=== PATIENT | female | born 1930 | race Caucasian/White ===

== ENCOUNTER → 2016-12-22 | Outpatient (CLI) | payer MEDICARE | END | disposition home or self-care (01) | LOC: RAD.S 14:53 | DX: E04.1 Nontoxic single thyroid nodule (principal); E04.2 Nontoxic multinodular goiter ==

== ENCOUNTER → 2017-01-11 | Outpatient (CLI) | payer MEDICARE ==
--- NOTE | ~2017-01-11 | CST ---
Cardiac Perfusion Imaging Demographics Patient Name HUGO DALTON M Gender Female Patient Number [id number] Race Visit Number [id number] Ethnicity Corporate ID Room Number Accession Number [id number] Height 60 inches Date of 1930 Weight 137 pounds Age 86 year(s) BSA 1.59 m Referring Physician Brandy SAMUEL BMI 26.76 kg/m Interpreting Physician NANCYAnirudh Carty Date of study 01/11/2017 Luz Block MD Supervising MD/MLP Luz Block MD NM Technologist Mana Ceja Ordering Physician [facility] Snehal [facility] Stress Nevin Jon performing arts technicians Stress ECG Reading [facility] Nurse Terrence Lee Physician Luz Moreira The procedure was explained in detail to the patient. Risks, complications and alternative treatments were reviewed. Written consent was obtained. Medications Reviewed with Patient prior to Procedure. Procedure Procedure Type: Nuclear Stress Test:Cardiac Study SF Procedure Start time: 01/11/2017 07:45 Indications: Shortness of breath, History of CAD and Hyperlipidemia. Risk Factors The patient risk factors include:prior PCI;chronic lung disease and dyslipidemia. Conclusions Summary Perfusion Images: The overall quality of the study is good. Left ventricular cavity is noted to be normal on the stress and rest studies. There is no evidence of abnormal lung activity. The right ventricle is not visualized and cannot be assessed. Stress SPECT images demonstrate homogenous tracer distribution throughout the myocardium. Rest SPECT images demonstrate homogenous tracer distribution throughout the myocardium. Gated SPECT imaging reveals normal myocardial thickening and wall motion. The left ventricular ejection fraction was calculated to be 77%. Impression ECG portion of stress test is clinically negative for ischemia by diagnostic criteria. Myocardial perfusion imaging is normal. Overall left ventricular systolic function was normal without regional wall motion abnormalities. Compared to the prior study from 2008, the current study reveals no change. Stress Protocols Resting ECG Normal sinus rhythm. Resting HR:68 bpm Resting BP:174/84 mmHg Stress Protocol:Pharmacologic Predicted HR: 136 bpm Test duration: 06:00 min Reason for termination:Infusion complete ECG Findings No ECG changes suggestive of ischemia. Arrhythmias No rhythm abnormality. Symptoms No symptoms with Lexiscan infusion. Complications Procedure complication: None. Stress Interpretation Appropriate hemodynamic response to Lexiscan. No significant ST-T wave changes with Lexiscan. ECG portion is negative for ischemia by diagnostic criteria. Imaging Results Summed scores - Summed stress score: 1 - Summed rest score: 0 - Summed difference score: 1 Stress ejection Ejection fraction:76 % EDV :68 ml ESV :16 ml Stroke volume :52 ml LV mass :92 gr Imaging Protocols Rest Stress Isotope:Tc99m Myoview IV Isotope: Tc99m Myoview IV Isotope dose:10.5 mCi Isotope dose:31.6 mCi Date:01/11/2017 06:45 Date:01/11/2017 08:00 Technique: SPECT Technique: Gated Supine SPECT Supine Scan Time:45-60 minutes post Scan Time:15-30 minutes post injection injection Procedure Medications - Regadenoson (Lexiscan) 0.4 mg IV over 10-15 sec. I.V. 0.4 mg. Medications administered per verbal order and read back to physician prior to administration. Medical History Admission Data Admission date: 01/11/2017 Admission Time: 06:41 Hospital Status: Outpatient. Signatures
== END | disposition home or self-care (01) ==
LOC: CARD 06:41
DX: R06.02 Shortness of breath (principal); I25.10 Atherosclerotic heart disease of native coronary artery without angina pectoris

== ENCOUNTER 2017-02-01 07:05 | Day surgery (SDC) | payer MEDICARE, OTHER ==
[~2017-02-01] VITALS: Ht 149.9 cm; Wt 61.4 kg
--- NOTE | ~2017-02-01 | EEP ---
Loop Recorder Implant Report Demographics Patient Name HUGO Wasserman JANUARY Gender Female Patient Number [id number] Race Visit Number [id number] Ethnicity Corporate ID Room Number Accession Number [id number] Height 149.86 cm Date of 1930 Weight 62.14 kg Age 86 year(s) BSA 1.57 m Referring Physician Regino Jones MD BMI 27.67 kg/m Implanting Physician Luz Block MD Date of Study 02/01/2017 Assisting Physician Performing Physician Luz Block MD The procedure was explained in detail to the patient. Risks, complications and alternative treatments were reviewed. Written consent was obtained. Medications reviewed with patient prior to procedure. Conclusions Implantable Device Summary Summary Successful implantation of Loop recorder. Recommendations Keep Dressing dry. Follow up in 1 week. Complications No complications. Procedure Procedure Type Loop Recorder:Initial implantation of loop recorder Indications Syncope. Procedure Description The patient was brought to the cath laboratory in a fasting state. A baseline ECG was recorded. Surface ECG leads, intracardiac electrograms, blood pressure measurements, and pulse oximetry signals were monitored with bedside monitor. Conscious sedation was administered. The upper chest area was prepped with ChloraPrep. After a three minute dry time the patient was draped in a sterile fashion. 2 % Lidocaine with Epi was infused at the 2nd parasternal space. An incision was made at the 2nd parasternal space left chest. Loop recorder was placed via [employer] insertion tool. Hemostasis was maintained with electrocautery and/or manual compression. The loop recorder was activated and proper sensing was established. The incision was then closed. It was closed using dermabond. The patient tolerated the procedure well and was returned to the nursing unit in stable condition. Devices and Leads Devices + + + +--------+-------+ +--------+ !Identification!Action !Location !Device !Serial !Implant !Comments! ! ! ! !name !# !date ! ! + + + +--------+-------+ +--------+ !New implant !Implanted !Left ![employer]![id number]!02/01/2017! ! ! ! !Subclavicular!LOOP ! ! ! ! ! ! ! !RECORDER! ! ! ! + + + +--------+-------+ +--------+ Medical History Allergies - No known allergies:. Admission Data Admission Date: 02/01/2017 Admission Time: 07:05 Insurance Payors:Medicare. Hospital Status:Outpatient. Procedure Data Procedure Date:02/01/2017Start:09:03End:09:22 Fluoroscopy Time: 0:00 minutes. Estimated blood loss:10 ml. Contrast Material - Isovue 370,0 ml. Procedure Medications Order and Administration + + +---------+--------+ !Time !Medication !Dosage !Route ! + + +---------+--------+ !02/01/2017 08:27 !Ancef !2 g !I.V. ! + + +---------+--------+ !02/01/2017 08:28 !Sodium Chloride !10 ml !I.V. ! + + +---------+--------+ !02/01/2017 08:31 !Oxygen !2 l/min !NC ! + + +---------+--------+ !02/01/2017 08:37 !Sodium Chloride !30 ml !I.V. ! + + +---------+--------+ !02/01/2017 08:38 !Versed !1 mg !I.V. ! + + +---------+--------+ !02/01/2017 08:39 !Fentanyl !50 mcg ! ! + + +---------+--------+ !02/01/2017 08:57 !Versed !1 mg !I.V. ! + + +---------+--------+ !02/01/2017 08:57 !Fentanyl !50 mcg !I.V. ! + + +---------+--------+ !02/01/2017 09:01 !Versed !1 mg !I.V. ! + + +---------+--------+ !02/01/2017 09:01 !Fentanyl !25 mcg !I.V. ! + + +---------+--------+ !02/01/2017 09:04 !Oxygen !4 l/min !NC ! + + +---------+--------+ !02/01/2017 09:06 !Versed !1 mg !I.V. ! + + +---------+--------+ Approach - Incision site: Left infraclavicular.The incision was closed using 3-0 Vicryl for the deep and intermediate layers and 4-0 Vicryl for the subcuticular layer. A sterile dressing was applied. Discharge Data Discharge Date: 02/01/2017 Signatures
== END 2017-02-01 10:30 | disposition home or self-care (01) ==
LOC: SSS 07:05
PROC: 0JH602Z Insertion of Monitoring Device into Chest Subcutaneous Tissue and Fascia, Open Approach (ICD-10-PCS; principal; 2017-02-01)
DX: R55 Syncope and collapse (principal); I25.10 Atherosclerotic heart disease of native coronary artery without angina pectoris; E78.5 Hyperlipidemia, unspecified; E55.9 Vitamin D deficiency, unspecified; M81.0 Age-related osteoporosis without current pathological fracture; Z90.49 Acquired absence of other specified parts of digestive tract; Z90.710 Acquired absence of both cervix and uterus; Z95.5 Presence of coronary angioplasty implant and graft; Z98.890 Other specified postprocedural states